=== PATIENT | female | born 1990 | race Caucasian/White ===

== ENCOUNTER 2016-04-30 08:16 | Emergency (ER) | payer OTHER ==
--- NOTE | 2016-04-30 09:21 | ED CLINICAL REPORT ---
Clinical Report - Physicians/Mid Levels [facility] [address] [place] [address] 04/30/2016 8:17 Patient: HAM MORROW Time Seen: 08:40; initial patient contact. Arrived- By private vehicle. Historian- patient. HISTORY OF PRESENT ILLNESS Chief Complaint: VAGINAL DISCHARGE. This started about 4 days ago and still present. It was gradual in onset. The symptoms are described as mild. Modifying factors. Not worsened by anything. Not relieved by anything. The patient has had mild, constant right-sided and suprapubic pelvic pain. She has had a vaginal discharge. No vaginal pain, low back pain, flank pain, abnormal bleeding or urgency of urination. No hematuria. She has had pain with urination. The patient has had urinary frequency. Sexually active. Similar symptoms previously: None. Recent medical care: Not recently seen/assessed. REVIEW OF SYSTEMS No nausea, vomiting, diarrhea, fever or chills. All systems otherwise negative, except as recorded above. PAST HISTORY ( Sacroiliitis. SURGERIES: Adenoidectomy. Tonsillectomy.). Medications: None. Allergies: No Known Drug Allergy. SOCIAL HISTORY Current every day smoker. History of drug use: marijuana. No alcohol use. ADDITIONAL NOTES The nursing notes have been reviewed with agreement regarding the chief complaint, PMH and patient medications and allergies. PHYSICAL EXAM Vital Signs: 04/30/2016 08:22 BP: 124/87. HR: 84. RR: 18. O2 saturation: 100%. Temp: 98 F. Pain level now: 10/10. Have been reviewed as normal. Appearance: Alert. Oriented X3. No acute distress. ENT: Pharynx normal. CVS: Heart sounds normal. Rate normal. Rhythm normal. Respiratory: No respiratory distress. Breath sounds normal. Abdomen: Soft. Mild tenderness in the lower abdomen. No guarding, rebound tenderness or obturator or psoas sign present. Bowel sounds normal. No mass. : A moderate amount of thick and white vaginal discharge present. No vaginal bleeding. Cervical os closed. No tissue present. No cervicitis. Tenderness present on bimanual exam. Skin: Normal skin color. No rash. Neuro: Oriented X 3. LABS, X-RAYS, AND EKG Laboratory Tests: UA-Culture if indicated: (ASHLEY: 04/30/2016 08:40) ( [facility] 04/30/2016 09:13) Final results Test Result Flag Units (Reference) URINE COLOR YELLOW URINE APPEARANCE CLOUDY URINE GLUCOSE NEGATIVE (NEGATIVE) URINE BILIRUBIN NEGATIVE (NEGATIVE) URINE BILIRUBIN ICTOTEST NEGATIVE (NEGATIVE) URINE KETONE 2+ (NEGATIVE) URINE SPECIFIC GRAVITY >= 1.030 (1.010-1.030) URINE PH 6.0 (5.0-8.0) URINE PROTEIN TRACE (NEGATIVE) URINE UROBILINOGEN 0.2 EU/dL (0.2-1.0) URINE NITRITE NEGATIVE (NEGATIVE) URINE BLOOD TRACE-LYSED (NEGATIVE) URINE LEUK ESTERASE POSITIVE (NEGATIVE) URINE RBC NONE SEEN rbc/hpf (0-1) URINE WBC 10-15 wbc/hpf (0-1) URINE EPITHELIAL CELLS 5-10 EPI/hpf (0-5) URINE BACTERIA MODERATE (2+ TO 3+) (NONE SEEN) URINE COMMENT CULTURE INDICATED 2+ MUCOUSURINE CULTURES ARE SET-UP BASED ON THE FOLLOWING CRITERIA:POSITIVE NITRITEPOSITIVE LEUKOCYTE ESTERASEGREATER THAN 10 WHITE BLOOD CELLSMODERATE (2+) OR GREATER BACTERIA Urine: (ASHLEY: 04/30/2016 08:40) ( [facility] 04/30/2016 09:02) Final results Test Result Flag Units (Reference) URINE NEGATIVE Wet Prep: (ASHLEY: 04/30/2016 08:51) ( [facility] 04/30/2016 09:09) Final results SPECIMEN DESCRIPTION: ... Test Result Flag Units (Reference) WET MOUNT CLUE CELLS:: NONE EPITHELIAL CELLS: FEW -- SOURCE?: CERVIV WHITE BLOOD CELLS: MODERATE TRICHOMONAS:: NONE -- YEAST:: NONE . PROGRESS AND PROCEDURES Disposition: Discharged home in good condition. Condition: good. CLINICAL IMPRESSION Acute urinary tract infection with cystitis. No pyelonephritis or hematuria. Vaginal discharge. INSTRUCTIONS Prescription Medications: Cipro 500 mg: take 1 tab orally every 12 hours for 3 days. No refills. Substitution is permissible. Follow-up: Follow up with your doctor in about two days. Call for an appointment. (Electronically signed by Taj Mares Dr. 04/30/2016 9:24)
--- NOTE | 2016-04-30 09:21 | ED CLINICAL REPORT ---
Clinical Report - Physicians/Mid Levels [facility] [address] [place] [address] 04/30/2016 8:17 Patient: HAM MORROW Time Seen: 08:40; initial patient contact. Arrived- By private vehicle. Historian- patient. HISTORY OF PRESENT ILLNESS Chief Complaint: VAGINAL DISCHARGE. This started about 4 days ago and still present. It was gradual in onset. The symptoms are described as mild. Modifying factors. Not worsened by anything. Not relieved by anything. The patient has had mild, constant right-sided and suprapubic pelvic pain. She has had a vaginal discharge. No vaginal pain, low back pain, flank pain, abnormal bleeding or urgency of urination. No hematuria. She has had pain with urination. The patient has had urinary frequency. Sexually active. Similar symptoms previously: None. Recent medical care: Not recently seen/assessed. REVIEW OF SYSTEMS No nausea, vomiting, diarrhea, fever or chills. All systems otherwise negative, except as recorded above. PAST HISTORY ( Sacroiliitis. SURGERIES: Adenoidectomy. Tonsillectomy.). Medications: None. Allergies: No Known Drug Allergy. SOCIAL HISTORY Current every day smoker. History of drug use: marijuana. No alcohol use. ADDITIONAL NOTES The nursing notes have been reviewed with agreement regarding the chief complaint, PMH and patient medications and allergies. PHYSICAL EXAM Vital Signs: 04/30/2016 08:22 BP: 124/87. HR: 84. RR: 18. O2 saturation: 100%. Temp: 98 F. Pain level now: 10/10. Have been reviewed as normal. Appearance: Alert. Oriented X3. No acute distress. ENT: Pharynx normal. CVS: Heart sounds normal. Rate normal. Rhythm normal. Respiratory: No respiratory distress. Breath sounds normal. Abdomen: Soft. Mild tenderness in the lower abdomen. No guarding, rebound tenderness or obturator or psoas sign present. Bowel sounds normal. No mass. : A moderate amount of thick and white vaginal discharge present. No vaginal bleeding. Cervical os closed. No tissue present. No cervicitis. Tenderness present on bimanual exam. Skin: Normal skin color. No rash. Neuro: Oriented X 3. LABS, X-RAYS, AND EKG Laboratory Tests: UA-Culture if indicated: (ASHLEY: 04/30/2016 08:40) ( [facility] 04/30/2016 09:13) Final results Test Result Flag Units (Reference) URINE COLOR YELLOW URINE APPEARANCE CLOUDY URINE GLUCOSE NEGATIVE (NEGATIVE) URINE BILIRUBIN NEGATIVE (NEGATIVE) URINE BILIRUBIN ICTOTEST NEGATIVE (NEGATIVE) URINE KETONE 2+ (NEGATIVE) URINE SPECIFIC GRAVITY >= 1.030 (1.010-1.030) URINE PH 6.0 (5.0-8.0) URINE PROTEIN TRACE (NEGATIVE) URINE UROBILINOGEN 0.2 EU/dL (0.2-1.0) URINE NITRITE NEGATIVE (NEGATIVE) URINE BLOOD TRACE-LYSED (NEGATIVE) URINE LEUK ESTERASE POSITIVE (NEGATIVE) URINE RBC NONE SEEN rbc/hpf (0-1) URINE WBC 10-15 wbc/hpf (0-1) URINE EPITHELIAL CELLS 5-10 EPI/hpf (0-5) URINE BACTERIA MODERATE (2+ TO 3+) (NONE SEEN) URINE COMMENT CULTURE INDICATED 2+ MUCOUSURINE CULTURES ARE SET-UP BASED ON THE FOLLOWING CRITERIA:POSITIVE NITRITEPOSITIVE LEUKOCYTE ESTERASEGREATER THAN 10 WHITE BLOOD CELLSMODERATE (2+) OR GREATER BACTERIA Urine: (ASHLEY: 04/30/2016 08:40) ( [facility] 04/30/2016 09:02) Final results Test Result Flag Units (Reference) URINE NEGATIVE Wet Prep: (ASHLEY: 04/30/2016 08:51) ( [facility] 04/30/2016 09:09) Final results SPECIMEN DESCRIPTION: ... Test Result Flag Units (Reference) WET MOUNT CLUE CELLS:: NONE EPITHELIAL CELLS: FEW -- SOURCE?: CERVIV WHITE BLOOD CELLS: MODERATE TRICHOMONAS:: NONE -- YEAST:: NONE . PROGRESS AND PROCEDURES Disposition: Discharged home in good condition. Condition: good. CLINICAL IMPRESSION Acute urinary tract infection with cystitis. No pyelonephritis or hematuria. Vaginal discharge. INSTRUCTIONS Prescription Medications: Cipro 500 mg: take 1 tab orally every 12 hours for 3 days. No refills. Substitution is permissible. Follow-up: Follow up with your doctor in about two days. Call for an appointment. (Electronically signed by Taj Mares Dr. 04/30/2016 9:24)
--- NOTE | 2016-04-30 09:21 | ED ORDER SUMMARY ---
..... Patient: HAM MORROW OrderSheet [facility] VisitID: [id number] [place] [address] 26y, F Registration Date/Time: 04/30/2016 ORDER SHEET Weight: 60.7 kg (measured) Allergies: No Known Drug Allergy GENERAL ORDERS: Rapid Influenza Screen (Nasal Pharyngeal) (...) Urgent (08:47 04/30/2016 Ermelinda Tavera) (Cancelled: Physician Order8:47 Ermelinda Tavera) Wet Prep (Cervix) (...) Urgent (08:48 04/30/2016 Ermelinda Tavera) (Ack 8:55 Maicol) (8:58 EHassan R.N.) GC/Chlamydia (Cervix) (...) Urgent (08:48 04/30/2016 Ermelinda Tavera) (Ack 8:55 Maicol) (8:58 EHassan R.N.) Urine Urgent (08:48 04/30/2016 Ermelinda Tavera) (Ack 8:56 Maicol) (8:58 EHassan R.N.) UA-Culture if indicated Urgent (08:48 04/30/2016 Ermelinda Tavera) (Ack 8:56 Maicol) (8:58 EHassan R.N.) MEDICATION ORDERS: Toradol IM 60 mg (NOW) (09:17 04/30/2016 Ermelinda Tavera) (Ack 9:55 JBoaradriel R.N.) (10:01 JBoardley R.N.) Zofran ODT PO 4 mg (NOW) (09:18 04/30/2016 Ermelinda Tavera) (Ack 9:55 JBoardley R.N.) (10:02 ENMANUELoarmaricely R.N.) IV FLUIDS: ORDER SHEET NOTES: [Electronically signed by Taj Mares Dr. (09:24 04/30/2016)] [Electronically signed by Jaylan Martinez R.N. (10:04 04/30/2016)] [Electronically locked/signed by Jaylan Martinez R.N. (10:04/30/2016)]
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
--- NOTE | 2016-04-30 09:21 | ED ORDER SUMMARY ---
..... Patient: HAM MORROW OrderSheet [facility] VisitID: [id number] [place] [address] 26y, F Registration Date/Time: 04/30/2016 ORDER SHEET Weight: 60.7 kg (measured) Allergies: No Known Drug Allergy GENERAL ORDERS: Rapid Influenza Screen (Nasal Pharyngeal) (...) Urgent (08:47 04/30/2016 Ermelinda Tavera) (Cancelled: Physician Order8:47 Ermelinda Tavera) Wet Prep (Cervix) (...) Urgent (08:48 04/30/2016 Ermelinda Tavera) (Ack 8:55 Maicol) (8:58 EHassan R.N.) GC/Chlamydia (Cervix) (...) Urgent (08:48 04/30/2016 Ermelinda Tavera) (Ack 8:55 Maicol) (8:58 EHassan R.N.) Urine Urgent (08:48 04/30/2016 Ermelinda Tavera) (Ack 8:56 Maicol) (8:58 EHassan R.N.) UA-Culture if indicated Urgent (08:48 04/30/2016 Ermelinda Tavera) (Ack 8:56 Maicol) (8:58 EHassan R.N.) MEDICATION ORDERS: Toradol IM 60 mg (NOW) (09:17 04/30/2016 Ermelinda Tavera) (Ack 9:55 JBoaradriel R.N.) (10:01 JBoardley R.N.) Zofran ODT PO 4 mg (NOW) (09:18 04/30/2016 Ermelinda Tavera) (Ack 9:55 JBoardley R.N.) (10:02 ENMANUELoarmaricely R.N.) IV FLUIDS: ORDER SHEET NOTES: [Electronically signed by Taj Mares Dr. (09:24 04/30/2016)] [Electronically signed by Jaylan Martinez R.N. (10:04 04/30/2016)] [Electronically locked/signed by Jaylan Martinez R.N. (10:04/30/2016)]
--- NOTE | 2016-04-30 10:05 | ED DISCHARGE INSTRUCTIONS ---
Patient: HAM MORROW General Instructions [facility] VisitID: [id number] [place] [address] 26y, F Registration Date/Time: 04/30/2016 Acute urinary tract infection with cystitis. No pyelonephritis or hematuria. Vaginal discharge. INSTRUCTIONS Prescription Medications: Cipro 500 mg: take 1 tab orally every 12 hours for 3 days. No refills. Substitution is permissible. Follow-up: Follow up with your doctor in about two days. Call for an appointment. ADDITIONAL INFORMATION Ciprofloxacin Hydrochloride Oral tablet What is this medicine? CIPROFLOXACIN (sip vannessa FLOX a sin) is a quinolone antibiotic. It is used to treat certain kinds of bacterial infections. It will not work for colds, flu, or other viral infections. How should I use this medicine? Take this medicine by mouth with a glass of water. Follow the directions on the prescription label. Take your medicine at regular intervals. Do not take your medicine more often than directed. Take all of your medicine as directed even if you think your are better. Do not skip doses or stop your medicine early. You can take this medicine with food or on an empty stomach. It can be taken with a meal that contains dairy or calcium, but do not take it alone with a dairy product, like milk or yogurt or calcium-fortified juice. A special MedGuide will be given to you by the pharmacist with each prescription and refill. Be sure to read this information carefully each time. Talk to your website developer regarding the use of this medicine in children. Special care may be needed. What side effects may I notice from receiving this medicine? Side effects that you should report to your doctor or health patient care as soon as possible: - allergic reactions like skin rash, itching or hives, swelling of the face, lips, or tongue - breathing problems - confusion, nightmares or hallucinations - feeling faint or lightheaded, falls - irregular heartbeat - joint, muscle or tendon pain or swelling - pain or trouble passing urine -persistent headache with or without blurred vision - redness, blistering, peeling or loosening of the skin, including inside the mouth - seizure - unusual pain, numbness, tingling, or weakness Side effects that usually do not require medical attention (report to your doctor or health patient care if they continue or are bothersome): - diarrhea - nausea or stomach upset - white patches or sores in the mouth What may interact with this medicine? Do not take this medicine with any of the following medications: cisapride droperidol terfenadine tizanidine This medicine may also interact with the following medications: antacids caffeine cyclosporin didanosine (ddI) buffered tablets or powder medicines for diabetes medicines for inflammation like ibuprofen, naproxen methotrexate multivitamins omeprazole phenytoin probenecid sucralfate theophylline warfarin What if I miss a dose? If you miss a dose, take it as soon as you can. If it is almost time for your next dose, take only that dose. Do not take double or extra doses. Where should I keep my medicine? Keep out of the reach of children. Store at room temperature below 30 degrees C (86 degrees F). Keep container tightly closed. Throw away any unused medicine after the expiration date. What should I tell my health care provider before I take this medicine? They need to know if you have any of these conditions: -bone problems -cerebral disease -joint problems -irregular heartbeat -kidney disease -liver disease -myasthenia gravis -seizure disorder -tendon problems -an unusual or allergic reaction to ciprofloxacin, other antibiotics or medicines, foods, dyes, or preservatives - or trying to get -breast-feeding What should I watch for while using this medicine? Tell your doctor or health patient care if your symptoms do not improve. Do not treat diarrhea with over the counter products. Contact your doctor if you have diarrhea that lasts more than 2 days or if it is severe and watery. You may get drowsy or dizzy. Do not drive, use machinery, or do anything that needs mental alertness until you know how this medicine affects you. Do not stand or sit up quickly, especially if you are an older patient. This reduces the risk of dizzy or fainting spells. This medicine can make you more sensitive to the sun. Keep out of the sun. If you cannot avoid being in the sun, wear protective clothing and use sunscreen. Do not use sun lamps or tanning beds/booths. Avoid antacids, aluminum, calcium, iron, magnesium, and zinc products for 6 hours before and 2 hours after taking a dose of this medicine. You have been given the following additional information: Ciprofloxacin Hydrochloride Oral tablet (Electronically signed by Taj Mares Dr. 04/30/2016 9:24)
--- NOTE | 2016-04-30 10:05 | ED MAR SUMMARY ---
..... Medication Administration Record [facility] [address] [place] [address] Patient: HAM MORROW Visit ID: [id number] 26y, F Weight: 60.7 kg Height/Length: 65 in BMI: 22.3 ALLERGIES: No Known Drug Allergy Given 09:04/30/2016 Jaylan Martinez RPaulie Medication Administered: TORADOL [IM] (KETOROLAC TROMETHAMINE), Dose: 60 mg IM. Medication Ordered: Toradol IM 60 mg (NOW). Given 09:04/30/2016 Jaylan Martinez RTyroneNTyrone Medication Administered: ZOFRAN ODT [PO] (ONDANSETRON), Dose: 4 mg PO. Medication Ordered: Zofran ODT PO 4 mg (NOW).
--- NOTE | 2016-04-30 10:05 | ED MED RECONCILIATION SUMMARY ---
Patient: HAM MORROW Medication Reconciliation Report [facility] VisitID: [id number] [place] [address] 26y, F Registration Date/Time: 04/30/2016 Weight: 60.7 kg Height/Length: 65 in. BMI: 22.3 ALLERGIES: No Known Drug Allergy The patient's Home Medications are listed below: NONE. The source(s) of the original Home Medication information: patient The following Medications were given to the patient in the Emergency Department: Toradol [IM] IM 60 mg, administered: 04/30/2016 9:51:00 AM Zofran ODT [PO] PO 4 mg, administered: 04/30/2016 9:51:00 AM The following Medications were prescribed to the patient: Cipro 500 mg: take 1 tab orally every 12 hours for 3 days. No refills. Substitution is permissible. -- Taj Mares Dr.
--- NOTE | 2016-04-30 10:05 | ED MED RECONCILIATION SUMMARY ---
Patient: HAM MORROW Medication Reconciliation Report [facility] VisitID: [id number] [place] [address] 26y, F Registration Date/Time: 04/30/2016 Weight: 60.7 kg Height/Length: 65 in. BMI: 22.3 ALLERGIES: No Known Drug Allergy The patient's Home Medications are listed below: NONE. The source(s) of the original Home Medication information: patient The following Medications were given to the patient in the Emergency Department: Toradol [IM] IM 60 mg, administered: 04/30/2016 9:51:00 AM Zofran ODT [PO] PO 4 mg, administered: 04/30/2016 9:51:00 AM The following Medications were prescribed to the patient: Cipro 500 mg: take 1 tab orally every 12 hours for 3 days. No refills. Substitution is permissible. -- Taj Mares Dr.
--- NOTE | 2016-04-30 10:05 | ED DISCHARGE INSTRUCTIONS ---
Patient: HAM MORROW General Instructions [facility] VisitID: [id number] [place] [address] 26y, F Registration Date/Time: 04/30/2016 Acute urinary tract infection with cystitis. No pyelonephritis or hematuria. Vaginal discharge. INSTRUCTIONS Prescription Medications: Cipro 500 mg: take 1 tab orally every 12 hours for 3 days. No refills. Substitution is permissible. Follow-up: Follow up with your doctor in about two days. Call for an appointment. ADDITIONAL INFORMATION Ciprofloxacin Hydrochloride Oral tablet What is this medicine? CIPROFLOXACIN (sip vannessa FLOX a sin) is a quinolone antibiotic. It is used to treat certain kinds of bacterial infections. It will not work for colds, flu, or other viral infections. How should I use this medicine? Take this medicine by mouth with a glass of water. Follow the directions on the prescription label. Take your medicine at regular intervals. Do not take your medicine more often than directed. Take all of your medicine as directed even if you think your are better. Do not skip doses or stop your medicine early. You can take this medicine with food or on an empty stomach. It can be taken with a meal that contains dairy or calcium, but do not take it alone with a dairy product, like milk or yogurt or calcium-fortified juice. A special MedGuide will be given to you by the pharmacist with each prescription and refill. Be sure to read this information carefully each time. Talk to your fish hatchery inspector regarding the use of this medicine in children. Special care may be needed. What side effects may I notice from receiving this medicine? Side effects that you should report to your doctor or health personal care assistant as soon as possible: - allergic reactions like skin rash, itching or hives, swelling of the face, lips, or tongue - breathing problems - confusion, nightmares or hallucinations - feeling faint or lightheaded, falls - irregular heartbeat - joint, muscle or tendon pain or swelling - pain or trouble passing urine -persistent headache with or without blurred vision - redness, blistering, peeling or loosening of the skin, including inside the mouth - seizure - unusual pain, numbness, tingling, or weakness Side effects that usually do not require medical attention (report to your doctor or health personal care assistant if they continue or are bothersome): - diarrhea - nausea or stomach upset - white patches or sores in the mouth What may interact with this medicine? Do not take this medicine with any of the following medications: cisapride droperidol terfenadine tizanidine This medicine may also interact with the following medications: antacids caffeine cyclosporin didanosine (ddI) buffered tablets or powder medicines for diabetes medicines for inflammation like ibuprofen, naproxen methotrexate multivitamins omeprazole phenytoin probenecid sucralfate theophylline warfarin What if I miss a dose? If you miss a dose, take it as soon as you can. If it is almost time for your next dose, take only that dose. Do not take double or extra doses. Where should I keep my medicine? Keep out of the reach of children. Store at room temperature below 30 degrees C (86 degrees F). Keep container tightly closed. Throw away any unused medicine after the expiration date. What should I tell my health care provider before I take this medicine? They need to know if you have any of these conditions: -bone problems -cerebral disease -joint problems -irregular heartbeat -kidney disease -liver disease -myasthenia gravis -seizure disorder -tendon problems -an unusual or allergic reaction to ciprofloxacin, other antibiotics or medicines, foods, dyes, or preservatives - or trying to get -breast-feeding What should I watch for while using this medicine? Tell your doctor or health personal care assistant if your symptoms do not improve. Do not treat diarrhea with over the counter products. Contact your doctor if you have diarrhea that lasts more than 2 days or if it is severe and watery. You may get drowsy or dizzy. Do not drive, use machinery, or do anything that needs mental alertness until you know how this medicine affects you. Do not stand or sit up quickly, especially if you are an older patient. This reduces the risk of dizzy or fainting spells. This medicine can make you more sensitive to the sun. Keep out of the sun. If you cannot avoid being in the sun, wear protective clothing and use sunscreen. Do not use sun lamps or tanning beds/booths. Avoid antacids, aluminum, calcium, iron, magnesium, and zinc products for 6 hours before and 2 hours after taking a dose of this medicine. You have been given the following additional information: Ciprofloxacin Hydrochloride Oral tablet (Electronically signed by Taj Mares Dr. 04/30/2016 9:24)
--- NOTE | 2016-04-30 10:05 | ED MAR SUMMARY ---
..... Medication Administration Record [facility] [address] [place] [address] Patient: HAM MORROW Visit ID: [id number] 26y, F Weight: 60.7 kg Height/Length: 65 in BMI: 22.3 ALLERGIES: No Known Drug Allergy Given 09:04/30/2016 Jaylan Martinez RPaulie Medication Administered: TORADOL [IM] (KETOROLAC TROMETHAMINE), Dose: 60 mg IM. Medication Ordered: Toradol IM 60 mg (NOW). Given 09:04/30/2016 Jaylan Martinez RTyroneNTyrone Medication Administered: ZOFRAN ODT [PO] (ONDANSETRON), Dose: 4 mg PO. Medication Ordered: Zofran ODT PO 4 mg (NOW).
== END 2016-04-30 10:03 | disposition home or self-care (01) ==
LOC: ED SRH 08:16
DX: N30.00 Acute cystitis without hematuria (principal); A74.9 Chlamydial infection, unspecified; N89.8 Other specified noninflammatory disorders of vagina
CPT/HCPCS: 90004; 90195; 90469; 91227; 91228; 93070